=== PATIENT | male | born 1980 | race Caucasian/White ===

== ENCOUNTER 2023-01-06 17:21 | Emergency (ER) | payer OTHER, MEDICAID ==
[2023-01-06 17:37] VITALS: BP 137/84; O2SAT 97
[2023-01-06] MEDS ORDERED: TETANUS/DIPHTHERIA/PERTUSSIS 0.5 ML SYRINGE IM ONE (17:48)
--- NOTE | 2023-01-06 18:06 | ED Physician Documentation ---
History of Present Illness - Stated complaint Stated Complaint: RT THUMB LAC - Chief complaint Chief Complaint: Ext Problem - Additonal information Additional information: 42-year-old male here with a right distal thumb tip amputation sustained when slicing wax paper at work. Unknown last tetanus. Left hand dominant. Work-related injury. Review of Systems Skin: reports: Laceration (s) PD PAST MEDICAL HISTORY - Allergies Allergies/Adverse Reactions: Allergies Allergy/AdvReac Type Severity Reaction Status Date / Time No Known Drug Allergies Allergy Verified 01/06/23 17:30 PD ED PE NORMAL - Extremities Extremities: Other (Right thumb: Partial distal tip amputation circumferential 0.3 cm. Capillary bleeding noted. Normal flexion extension at DIP. No bone evident.) Results - Vitals Vitals: Vital Signs - 24 hr 01/06/23 01/06/23 17:28 17:30 Temperature 37 C 37 C Heart Rate 76 76 Respiratory 20 20 Rate Blood Pressure 137/84 H 137/84 H O2 Saturation 97 97 Oxygen O2 Source Room air Procedures - Laceration (location) Right thumb Length in cm: 3 Wound type: Into subcut fat, Into muscle Neurovascular status: Sensory intact, Motor intact Tendon involvement: Tendon intact Anesthesia: Lidocaine 1% Wound preparation: Chlorhexadine Skin layer closure: Dermabond, Other (Partial tip amputation closed with Dermabond.) Other: Tetanus booster given PD Medical Decision Making - ED course Complexity details: reviewed results, re-evaluated patient, d/w patient ED course: 42-year-old male who is left-hand dominant presents emergency department for evaluation of a right thumb distal tip skin avulsion/laceration sustained when cutting fish at work. Tetanus was updated today. The wound was not amenable to primary closure. We were able to achieve hemostasis by placing Dermabond. I do anticipate the patient should be able to return to work if he is able to keep his dressing clean and dry. Usual emergent return precautions worsening symptoms was discussed. [employer] [id number] completed at the bedside Departure - Departure Disposition: 01 Home, Self Care Clinical Impression: Skin avulsion, Work related injury Thumb laceration Qualifiers: Encounter type: initial encounter Damage to nail status: without damage Foreign body presence: without foreign body Laterality: right Qualified Code(s): S61.011A - Laceration without foreign body of right thumb without damage to nail, initial encounter Condition: Stable Record reviewed to determine appropriate education?: Yes Instructions: ED Laceration Ext Skin Glue Comments: We were able to close your laceration/skin avulsion of your right thumb by using Dermabond. No special care is required for this it we will simply wear away over the course of the next week. Do not apply antibiotic ointment to it as well because the Dermabond wear away quicker. Because this is a partial avulsion and tip amputation of the skin it would likely take about 2 weeks for this wound to heal. If at any point you have concerns of infection such as fevers redness milky drainage or increased pain then please return to the ER. In general I recommend they take Tylenol or ibuprofen [id number] for discomfort. Forms: PCP List
== END 2023-01-06 18:59 | disposition home or self-care (01) ==
LOC: EDSEX → ED 17:21
DX: S61.011A Laceration without foreign body of right thumb without damage to nail, initial encounter (principal); W45.8XXA Other foreign body or object entering through skin, initial encounter; Y93.G1 Activity, food preparation and clean up; Y92.511 Restaurant or cafe as the place of occurrence of the external cause; Y99.0 Civilian activity done for income or pay
CPT/HCPCS: 12002; 90471; 99283